=== PATIENT | male | born 1990 | race Caucasian/White ===

== ENCOUNTER 2018-10-21 08:26 | Emergency (ER) | payer SELFPAY ==
[~2018-10-21] VITALS: Ht 172.7 cm; Wt 72.0 kg
[~2018-10-21 08:26] MED LIST: ELIM TOP; IBUP-1542 PO; IVER3TAB2 PO
[2018-10-21 08:36] VITALS: BP 130/90; PULSE 84; RESP 18; Ht 172.7 cm; Wt 72.0 kg
[2018-10-21] MEDS ORDERED: DEXAMETHASONE 10 MG/ML 1 ML INJ IM ONE (09:00)
== END 2018-10-21 09:51 | disposition home or self-care (01) ==
LOC: FTE 08:26
DX: M54.41 Lumbago with sciatica, right side (principal); B86 Scabies; F17.210 Nicotine dependence, cigarettes, uncomplicated
CPT/HCPCS: 96372; 99284; J1100